=== PATIENT | female | born 1985 | race Caucasian/White ===

== ENCOUNTER 2018-11-08 17:30 | Inpatient (IN) | payer OTHER ==
[2018-11-08] MEDS ORDERED: AMPICILLIN SODIUM 2 GM VIAL ONE (17:52)
[2018-11-08] MEDS ORDERED: AMPICILLIN - 2 GM in SODIUM CHLORIDE 100 ML IVPB ONE (17:55)
[2018-11-08] MEDS ORDERED: DEXTROSE 5%-LACTATED RINGERS 500 ML IV ONE (18:30)
[2018-11-08 18:35] VITALS: BMI 35.0
[2018-11-08 19:05] LABS: BASO % 0.2 % (0-2.0); EOS % 0.8 % (0-4.5); HEMATOCRIT 29.6 % (32.4-45.2); HEMOGLOBIN 10.6 GM/dL (10.7-15.3); LYMPH % 19.6 % (8-40); MCH 31.4 pg (25.7-33.7); MCHC 35.9 g/dl (32.0-36.0); MEAN CELL VOLUME 87.4 fl (80-96); MEAN PLT VOLUME 8.8 fl (7.5-11.1); MONO % 6.4 % (3.8-10.2); PLATELET COUNT 267 K/MM3 (134-434); RBC 3.39 M/mm3 (3.60-5.2); RDW 13.5 % (11.6-15.6); WHITE BLOOD COUNT 10.6 K/mm3 (4.0-10.0)
[2018-11-08 19:29] LABS: PROTHROMBIN TIME (PATIENT) 11.8 SEC (9.7-13.0)
[2018-11-08] MEDS ORDERED: DEXTROSE 5%-LACTATED RINGERS 1,000 ML IV SCH (19:30)
[2018-11-08 19:32] LABS: ACTIVATED PTT 26.5 SECONDS (25.2-36.5)
[2018-11-08 20:42] LABS: ANION GAP 8 MMOL/L (8-16); BLOOD UREA NITROGEN 11 mg/dL (7-18); CHLORIDE 105 mmol/L (98-107); CO2 25 mmol/L (21-32); CREATININE 0.8 mg/dL (0.55-1.3); GLUCOSE,RANDOM 106 mg/dL (74-106); POTASSIUM 4.3 mmol/L (3.5-5.1); SODIUM 137 mmol/L (136-145)
[2018-11-08] MEDS ORDERED: ERYTHROMYCIN IVPB SCH (21:00)
[2018-11-08] MEDS ORDERED: SODIUM CHLORIDE IVPB SCH (21:00)
--- NOTE | 2018-11-08 21:00 | HP ---
Past Medical History - Admission Chief Complaint: Spontaneous rupture of membrane History of Present Illness: 33 yo , @ 30.6 weeks gestation, EDC 01/11/19, sent to l&D due to spontaneous rupture of membrane. She c/o occasional abdominal cramps. She was conceived by IVF and was complicated by short cervix. She received 1 dose of steroid during this . History Source: Patient Limitations to Obtaining History: No Limitations - Past Medical History ...: 4 ...Para: 0 ...Term: 0 ...: 0 ...Spon : 3 ...Induced : 0 ...Multiple Gestation: 0 ... Weeks Gestation by Dates: 30.6 ...EDC by Dates: 01/11/18 ...EDC by Sono: 01/01/18 - Past Surgical History Past Surgical History: Yes: None Hx Myomectomy: No Hx Transabdominal Cerclage: No - Smoking History Smoking history: Never smoked Have you smoked in the past 12 months: No - Alcohol/Substance Use Hx Alcohol Use: No History of Substance Use: reports: None - Social History Usual Living Arrangement: Yes: With Spouse History of Recent Travel: No Home Medications - Allergies Allergies/Adverse Reactions: Allergies Allergy/AdvReac Type Severity Reaction Status Date / Time No Known Drug Allergies Allergy Verified 11/08/18 18:38 - Home Medications Home Medications: Ambulatory Orders Vitamins (Sjr) - 1 tab PO DAILY 09/29/18 Progesterone, Micronized [Progesterone] 100 mg VG DAILY 10/25/18 Review of Systems - Review of Systems Constitutional: reports: No Symptoms Eyes: reports: No Symptoms HENT: reports: No Symptoms Neck: reports: No Symptoms Cardiovascular: reports: No Symptoms Respiratory: reports: No Symptoms Gastrointestinal: reports: No Symptoms Genitourinary: reports: Other (rupture of membrane) Breasts: reports: No Symptoms Reported Musculoskeletal: reports: No Symptoms Integumentary: reports: No Symptoms Neurological: reports: No Symptoms Endocrine: reports: No Symptoms Hematology/Lymphatic: reports: No Symptoms Psychiatric: reports: No Symptoms Pain Intensity: 2 Physical Exam - Maternity Vital Signs: Vital Signs Temperature 98.3 F 11/08/18 17:59 Pulse Rate 98 H 11/08/18 17:59 Respiratory Rate 20 11/08/18 17:59 Blood Pressure 121/84 11/08/18 17:59 O2 Sat by Pulse Oximetry (%) Constitutional: Yes: Well Nourished Eyes: Yes: Conjunctiva Clear HENT: Yes: Atraumatic Neck: Yes: Supple Cardiovascular: Yes: Regular Rate and Rhythm Lungs: Clear to auscultation - Abdominal Exam/OB Number of Fetuses: Single Presentation: Vertex Contractions: No - Vaginal Exam/OB Dilatation (cm): 2 Effacement (%): 90 Amniotic Membrane Status: Leaking Amniotic Fluid: Yes: Clear Presentation: Vertex/Position Station: -1 - Physical Exam ...Motor Strength: WNL Psychiatric: Yes: Alert, Oriented - Labs Lab Results: CBC, BMP 11/08/18 18:30 11/08/18 18:30 Problem List - Problems (1) premature rupture of membranes (PPROM) with unknown onset of labor Code(s): O42.919 - PRETRM GUILLE ROM, UNSP TIME BETW RUPT AND ONST LABR, UNSP TRI Assessment/Plan PPROM Admit to L&D Prior steroid course Ampicillin and Erythromycin Daily CBC vitamins Regular diet DVT prophylaxis Continue close observation
[2018-11-08] MEDS: AMPICILLIN - 1 GM in SODIUM CHLORIDE 100 ML IVPB SCH (22:00)
[2018-11-08] MEDS ORDERED: AMPICILLIN SODIUM 1 GM VIAL ONE (22:14)
[2018-11-09] MEDS: DEXTROSE 5%-LACTATED RINGERS 1,000 ML IV SCH ×3 (01:00→21:00)
[2018-11-09] MEDS ORDERED: AMPICILLIN SODIUM 1 GM VIAL ONE ×6 (01:54→21:57)
[2018-11-09] MEDS: AMPICILLIN - 1 GM in SODIUM CHLORIDE 100 ML IVPB SCH ×6 (02:00→22:00)
[2018-11-09 06:55] LABS: BASO % 0.3 % (0-2.0); EOS % 1.1 % (0-4.5); HEMATOCRIT 27.2 % (32.4-45.2); LYMPH % 24.8 % (8-40); MCH 31.8 pg (25.7-33.7); MCHC 36.7 g/dl (32.0-36.0); MEAN CELL VOLUME 86.7 fl (80-96); MEAN PLT VOLUME 8.8 fl (7.5-11.1); MONO % 5.6 % (3.8-10.2); NEUT % 68.2 % (42.8-82.8); PLATELET COUNT 248 K/MM3 (134-434); RBC 3.14 M/mm3 (3.60-5.2); RDW 13.4 % (11.6-15.6); WHITE BLOOD COUNT 10.9 K/mm3 (4.0-10.0)
[2018-11-09] MEDS ORDERED: BETAMET ACET/BETAMET NA PH 30 MG/5 ML VIAL ONE (09:55)
[2018-11-09] MEDS: PRENATAL VITAMINS W/ FOLIC ACID TABLET (FP) PO SCH (10:00)
[2018-11-09] MEDS ORDERED: BETAMET ACET/BETAMET NA PH 30 MG/5 ML VIAL IM ONE (10:17)
--- NOTE | 2018-11-09 10:25 | PN ---
Progress Note (short form) - Note Progress Note: 33 yo @ 31 weeks gestation, EDC 01/11/19, admitted for PPROM seen and evaluated. She continues to leak fluid but denies any contractions pain. She's afebrile. 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
[2018-11-09] MEDS: ERYTHROMYCIN BASE 250 MG TAB PO SCH ×2 (12:05→18:06)
[2018-11-10] MEDS: AMPICILLIN - 1 GM in SODIUM CHLORIDE 100 ML IVPB SCH ×6 (02:15→22:00)
[2018-11-10] MEDS ORDERED: AMPICILLIN SODIUM 1 GM VIAL ONE ×3 (02:46→14:40)
[2018-11-10] MEDS: DEXTROSE 5%-LACTATED RINGERS 1,000 ML IV SCH ×2 (06:00→16:00)
[2018-11-10] MEDS: ERYTHROMYCIN BASE 250 MG TAB PO SCH ×4 (06:00→18:00)
[2018-11-10 07:20] LABS: BASO % 0.1 % (0-2.0); EOS % 0.1 % (0-4.5); HEMATOCRIT 27.8 % (32.4-45.2); MCH 31.2 pg (25.7-33.7); MEAN CELL VOLUME 86.7 fl (80-96); MEAN PLT VOLUME 8.7 fl (7.5-11.1); MONO % 6.9 % (3.8-10.2); NEUT % 78.9 % (42.8-82.8); PLATELET COUNT 256 K/MM3 (134-434); RDW 13.3 % (11.6-15.6); WHITE BLOOD COUNT 12.6 K/mm3 (4.0-10.0)
[2018-11-10] MEDS: PRENATAL VITAMINS W/ FOLIC ACID TABLET (FP) PO SCH (10:00)
[2018-11-10] MEDS ORDERED: BETAMET ACET/BETAMET NA PH 30 MG/5 ML VIAL IM ONE (10:45)
--- NOTE | 2018-11-10 15:52 | PN ---
Progress Note (short form) - Note Progress Note: 33 yo @ 31 weeks gestation, EDC 01/11/19, admitted for PPROM seen and evaluated. She continues to leak fluid but denies any contractions pain. She's afebrile. FHR : Reassuring [place] : no contractions VE : + leakage of fluid ASS : PPROM Plan : Continue NST Continue daily CBC DVT prophylaxis Continue Erythromycin and Ampicillin Case discussed with Dr. Schwarz ( Biostatistician ) Delivery plan ( Thursday11/12/18 ) Will transfer patient to [facility] if NST is non reassuring Continue close monitoring Problem List - Problems (1) premature rupture of membranes (PPROM) with unknown onset of labor Code(s): O42.919 - PRETRM GUILLE ROM, UNSP TIME BETW RUPT AND ONST LABR, UNSP TRI
[2018-11-10 18:38] VITALS: PULSE 98
[2018-11-10 19:36] VITALS: BP 128/71; TEMP 98
--- NOTE | 2018-11-10 23:03 | PN ---
Progress Note (short form) - Note Progress Note: Patient re-evaluated, no complaints. A sonogram done and show a BPP of 6/8 ( BORIS 4.8 ) FHR : Evidence of prolonged decelarations x 3 today [place] : no contractions VE : + leakage of fluid ASS : PPROM Plan : Transfer to [facility] Consent signed Problem List - Problems (1) premature rupture of membranes (PPROM) with unknown onset of labor Code(s): O42.919 - PRETRM GUILLE ROM, UNSP TIME BETW RUPT AND ONST LABR, UNSP TRI
[2018-11-11] MEDS: ERYTHROMYCIN BASE 250 MG TAB PO SCH
== END 2018-11-11 01:58 | disposition short-term general hospital (02) | DRG 566 ==
LOC: JLDR 17:30
PROVIDERS: ADMIT Obstetrics & Gynecology; ATTEND Obstetrics & Gynecology
DX: O42.913 Preterm premature rupture of membranes, unspecified as to length of time between rupture and onset of labor, third trimester (principal); Z3A.30 30 weeks gestation of pregnancy
CPT/HCPCS: 36415; 76819-TC; 80048; 85025; 85610; 85730; 86593; 86850; 86900; 86901; 96372